=== PATIENT | female | born 1940 | race African-American/Black ===

== ENCOUNTER 2020-10-26 11:02 | Emergency (ER) | payer MEDICARE, BC ==
[~2020-10-26] VITALS: Ht 170.2 cm; Wt 64.0 kg
[2020-10-26] MEDS ORDERED: ONDANSETRON HCL 4MG/2ML INJ IV STA (11:28)
[2020-10-26] MEDS ORDERED: LORAZEPAM 2MG/ML CPJ IV ONE (11:30)
[2020-10-26 12:05] LABS: EOSINOPHILS % 1.5 % (0.0-5.0); HEMATOCRIT. 38.8 % (36.0-48.0); HEMOGLOBIN. 12.9 g/dL (12.0-16.0); LYMPHOCYTES % 18.1 % (20.0-50.0); MEAN CORPUSCULAR HEMOGLOBIN 30.6 pg (28.0-32.0); MEAN CORPUSCULAR VOLUME 91.7 fL (81.0-99.0); MEAN PLATELET VOLUME 9.1 fl (7.4-10.4); MONOCYTES % 7.4 % (2.0-8.0); PLATELET 205 x1000/uL (130-400); RED BLOOD CELL COUNT 4.23 mill/uL (4.2-5.4); RED CELL DISTRIBUTION WIDTH 14.9 % (11.6-14.6)
[2020-10-26 12:11] LABS: CHLORIDE 109 mEq/L (98-107)
[2020-10-26 12:16] LABS: PROTHROMBIN TIME 10.9 sec (9.6-11.0)
[2020-10-26] MEDS ORDERED: IOHEXOL-350 100 ML BOTTLE ONE (13:39)
[2020-10-26] MEDS ORDERED: MECL-159 MT (14:50)
[2020-10-26] MEDS ORDERED: ONDA4TAB5 MT (14:50)
[2020-10-26 15:11] VITALS: BP 146/74
== END 2020-10-26 15:11 | disposition home or self-care (01) ==
LOC: ER 11:02 → CANBEDREQ 21:00
DX: R42 Dizziness and giddiness (principal); E11.9 Type 2 diabetes mellitus without complications; I10 Essential (primary) hypertension; Z90.710 Acquired absence of both cervix and uterus
CPT/HCPCS: 36415; 70450; 70496; 70498; 80053; 84484; 85025; 85610; 93005; 96374; 96375; 99285; J2060; J2405; Q9967